=== PATIENT | male | born 2000 | race Hispanic/Latino ===

== ENCOUNTER 2022-06-19 08:35 | Emergency (ER) | payer OTHER ==
[2022-06-19] MEDS ORDERED: Bacitracin 1 PK ONE (08:54)
[2022-06-19] MEDS ORDERED: Lidocaine 1% (PF) 30 ML VIAL ONE (08:54)
== END 2022-06-19 09:38 ==
LOC: NAV ERS 08:35
DX: S61.310A Laceration without foreign body of right index finger with damage to nail, initial encounter (principal); W26.8XXA Contact with other sharp object(s), not elsewhere classified, initial encounter; Z87.891 Personal history of nicotine dependence
CPT/HCPCS: 12002; J2001